=== PATIENT | male | born 1985 | race Caucasian/White ===

== ENCOUNTER 2016-11-05 17:13 | Inpatient (IN) | payer OTHER ==
[~2016-11-05] VITALS: Ht 172.7 cm; Wt 73.8 kg
[2016-11-05 17:20] VITALS: BP 129/72; PULSE 67; RESP 16; TEMP 97.8; O2SAT 96
[2016-11-05] MEDS ORDERED: SODIUM CHLOR 0.9% 1000 ML INJ 1,000 ML IV SCH (18:56)
[2016-11-05] MEDS ORDERED: SODIUM CHLORIDE 0.9% FLUSH 5 ML FLUSH IVF PRN (19:00)
[2016-11-05] MEDS ORDERED: KETOROLAC TROMETHAMINE 30 MG/ML (IVP) VIAL IV PUSH ONE (19:00)
--- NOTE | 2016-11-05 19:12 | PD ---
HPI Chief Complaint: Flank/Kidney Pain Time Seen by Provider: 18:52 Travel History International Travel<30 days: No Contact w/Intl Traveler<30days: No Traveled to known affect area: No History of Present Illness HPI 31-year-old male here for evaluation of left flank pain. The patient reports intermittent left flank pain for last 2 weeks, worse since yesterday evening. He believes he may passed a couple of kidney stones this morning and he has history of kidney stones. Pain described as an ache, intermittent, no modifying factors, radiates to his left upper and lower abdomen. He denies history of abdominal surgeries. No fevers or chills. No nausea or vomiting. No diarrhea. No dysuria or hematuria. PFSH Social History Tobacco Use: No Allergies-Medications (Allergen,Severity, Reaction): Coded Allergies: No Known Allergies (Unverified , 11/05/16) Reported Meds & Prescriptions Reported Meds & Active Scripts Active No Active Prescriptions or Reported Medications Review of Systems Except as stated in HPI: all other systems reviewed are Neg Physical Exam Narrative GENERAL: Pleasant, well-developed, well-nourished, comfortable, no acute distress. SKIN: Warm and dry. No rash. HEAD: Atraumatic. Normocephalic. EYES: Pupils equal and round. No scleral icterus. No injection or drainage. ENT: Mucous membranes pink and moist. NECK: Trachea midline. No JVD. CARDIOVASCULAR: Regular rate and rhythm. RESPIRATORY: No accessory muscle use. Clear to auscultation. Breath sounds equal bilaterally. GASTROINTESTINAL: Abdomen soft, non-tender, nondistended. Hepatic and splenic margins not palpable. MUSCULOSKELETAL: No obvious deformities. No clubbing. No cyanosis. No edema. Mild left CVA tenderness. No right CVA tenderness. No midline vertebral step- off or tenderness. NEUROLOGICAL: Awake and alert. No obvious cranial nerve deficits. Motor grossly within normal limits. Normal speech. PSYCHIATRIC: Appropriate mood and affect; insight and judgment normal. Data Data Last Documented VS Vital Signs Date Time Temp Pulse Resp B/P Pulse Ox O2 Delivery O2 Flow Rate FiO2 11/05/16 20:00 63 18 141/88 100 Room Air 11/05/16 17:20 97.8 Orders Complete Blood Count With Diff (11/05/16 18:56) Comprehensive Metabolic Panel (11/05/16 18:56) Lipase (11/05/16 18:56) Prothrombin Time / Inr (Pt) (11/05/16 18:56) Act Partial Throm Time (Ptt) (11/05/16 18:56) Urinalysis - C+S If Indicated (11/05/16 18:56) Ct Abd/Pel W/O Iv Contrast (11/05/16 18:56) Iv Access Insert/Monitor (11/05/16 18:56) Ecg Monitoring (11/05/16 18:56) Oximetry (11/05/16 18:56) Sodium Chlor 0.9% 1000 Ml Inj (Ns 1000 M (11/05/16 18:56) Sodium Chloride 0.9% Flush (Ns Flush) (11/05/16 19:00) Ketorolac Inj (Toradol Inj) (11/05/16 19:00) Admit Order (Ed Use Only) (11/05/16 20:07) Labs Laboratory Tests Test 11/05/16 19:25 White Blood Count 6.9 TH/MM3 Red Blood Count 5.20 MIL/MM3 Hemoglobin 16.1 GM/DL Hematocrit 47.6 % Mean Corpuscular Volume 91.6 FL Mean Corpuscular Hemoglobin 31.0 PG Mean Corpuscular Hemoglobin 33.8 % Concent Red Cell Distribution Width 12.4 % Platelet Count 203 TH/MM3 Mean Platelet Volume 9.5 FL Neutrophils (%) (Auto) 65.7 % Lymphocytes (%) (Auto) 25.3 % Monocytes (%) (Auto) 7.2 % Eosinophils (%) (Auto) 1.3 % Basophils (%) (Auto) 0.5 % Neutrophils # (Auto) 4.6 TH/MM3 Lymphocytes # (Auto) 1.8 TH/MM3 Monocytes # (Auto) 0.5 TH/MM3 Eosinophils # (Auto) 0.1 TH/MM3 Basophils # (Auto) 0.0 TH/MM3 CBC Comment DIFF FINAL Differential Comment Prothrombin Time 10.3 SEC Prothromb Time International 0.9 RATIO Ratio Activated Partial 26.5 SEC Thromboplast Time Urine Collection Type CLEAN CATCH Urine Color YELLOW Urine Turbidity CLEAR Urine pH 5.5 Urine Specific [place] 1.022 Urine Protein NEG mg/dL Urine Glucose (UA) NEG mg/dL Urine Ketones NEG mg/dL Urine Occult Blood NEG Urine Nitrite NEG Urine Bilirubin NEG Urine Leukocyte Esterase NEG Urine Squamous Epithelial 0-5 /hpf Cells Urine Mucus OCC /lpf Microscopic Urinalysis Comment CULT NOT INDICATED Sodium Level 144 MEQ/L Potassium Level 3.9 MEQ/L Chloride Level 108 MEQ/L Carbon Dioxide Level 27.2 MEQ/L Anion Gap 9 MEQ/L Blood Urea Nitrogen 18 MG/DL Creatinine 0.70 MG/DL Estimat Glomerular Filtration 130 ML/MIN Rate Random Glucose 89 MG/DL Calcium Level 8.9 MG/DL Total Bilirubin 0.4 MG/DL Aspartate Amino Transf 16 U/L (AST/SGOT) Alanine Aminotransferase 37 U/L (ALT/SGPT) Alkaline Phosphatase 95 U/L Total Protein 7.4 GM/DL Albumin 3.9 GM/DL Lipase 1355 U/L [facility] Medical Decision Making Medical Screen Exam Complete: Yes Emergency Medical Condition: Yes Differential Diagnosis Nephrolithiasis, ureterolithiasis, pyelonephritis, UTI, gastritis, pancreatitis , hepatobiliary disease. Narrative Course Vital signs are within normal limits. CBC is unremarkable. CMP is unremarkable. Lipase is 1355. UA is unremarkable. CT abdomen pelvis shows a tiny stone in the right kidney, otherwise unremarkable. The patient was made aware of all findings. He is not a daily drinker nor does he consume significant amount of alcohol. He does admit to drinking some alcohol throughout the week last week drinking only a couple of drinks per day. Last alcoholic beverage was 2 nights ago. Patient's abdominal exam is benign. There are no peritoneal signs. Because his lipase is 3 times the upper limit of normal, he will be admitted for overnight observation for IV hydration, nothing by mouth. Case discussed with hospitalist Dr Soto who will admit the patient to her service. Diagnosis Primary Impression: Pancreatitis Qualified Code: K85.90 - Acute pancreatitis, unspecified complication status, unspecified pancreatitis type Admitting Information Admitting Physician Requests: Admit Scripts No Active Prescriptions or Reported Meds Nato Martinez MD Nov 05, 2016 19:12
[2016-11-05 19:19] VITALS: RESP 18; O2SAT 98
[2016-11-05 19:39] LABS: AUTOMATED NEUTROPHIL # 4.6 TH/MM3 (1.8-7.7); BASOPHIL % 0.5 % (0.0-2.0); EOSINOPHIL # 0.1 TH/MM3 (0-0.4); EOSINOPHIL % 1.3 % (0.0-4.0); HEMATOCRIT 47.6 % (39.0-51.0); HEMO FLAGS DIFF FINAL; LYMPH % 25.3 % (9.0-44.0); LYMPHOCYTE # 1.8 TH/MM3 (1.0-4.8); MEAN CELL VOLUME 91.6 FL (80.0-100.0); MEAN CORPUSCULAR HGB CONC 33.8 % (32.0-36.0); MONO % 7.2 % (0.0-8.0); NEUT % 65.7 % (16.0-70.0); PLATELET COUNT 203 TH/MM3 (150-450); RED CELL DISTRIBUTION WIDTH 12.4 % (11.6-17.2); WHITE BLOOD COUNT 6.9 TH/MM3 (4.0-11.0)
[2016-11-05 19:40] LABS: BLOOD, URINE NEG (NEG); GLUCOSE,URINE NEG (NEG); KETONE, URINE NEG (NEG); NITRITE,URINE NEG (NEG); PH, URINE 5.5 (5.0-8.5)
[2016-11-05 19:42] LABS: CHLORIDE 108 MEQ/L (98-107); POTASSIUM 3.9 MEQ/L (3.5-5.1); SODIUM (NA) 144 MEQ/L (136-145)
[2016-11-05 19:45] LABS: METHOD OF COLLECTION CLEAN CATCH; URINE COLOR YELLOW (YELLW/STRAW)
[2016-11-05 19:46] LABS: ANION GAP 9 MEQ/L (5-15); BICARBONATE 27.2 MEQ/L (21.0-32.0); BLOOD UREA NITROGEN 18 MG/DL (7-18)
--- NOTE | 2016-11-05 19:46 | RADHPO ---
EXAM DATE/TIME: 11/05/2016 19:08 [place] COMPARISON: No previous studies available for comparison. INDICATIONS : Left flank pain. ORAL CONTRAST: No oral contrast ingested. RADIATION DOSE: 10.23 CTDIvol (mGy) MEDICAL HISTORY : None SURGICAL HISTORY : None. ENCOUNTER: Initial ACUITY: 2 weeks PAIN SCALE: 6/10 LOCATION: Left flank TECHNIQUE: Volumetric scanning of the abdomen and pelvis was performed. Using automated exposure control and ad justment of the mA and/or kV according to patient size, radiation dose was kept as low as reasonably achievable to obtain optimal diagnostic quality images. FINDINGS: LOWER LUNGS: The visualized lower lungs are clear. LIVER: Homogeneous density without lesion. There is no dilation of the biliary tree. No calcified gallston es. SPLEEN: Normal size without lesion. PANCREAS: Within normal limits. KIDNEYS: There is a 2 mm nonobstructing stone of the right lower pole. No renal stone seen on the left. No ure teral calculus, hydronephrosis or hydroureter seen on side. ADRENAL GLANDS: Within normal limits. VASCULAR: There is no aortic aneurysm. BOWEL/MESENTERY: The stomach, small bowel, and colon demonstrate no acute abnormality. There is no free intraperitone al air or fluid. Appendix is well-visualized, normal. ABDOMINAL WALL: Within normal limits. RETROPERITONEUM: There is no lymphadenopathy. BLADDER: No wall thickening or mass. REPRODUCTIVE: Within normal limits. INGUINAL: There is no lymphadenopathy or hernia. MUSCULOSKELETAL: Within normal limits for patient age. CONCLUSION: Tiny nonobstructing stone of the right kidney. Otherwise normal noncontrast CT of the abdomen and pel vis. Black Silva MD on November 05, 2016 at 19:42 Board Certified Radiologist. This report was verified electronically.
[2016-11-05 19:47] LABS: APTT (PATIENT) 26.5 SEC (24.3-30.1); INTERNATIONAL NORMALIZED RATIO 0.9 RATIO; MUCUS URINE OCC /lpf (OCC); PROTHROMBIN TIME - PATIENT 10.3 SEC (9.8-11.6)
[2016-11-05 19:48] LABS: ALT (GPT) 37 U/L (12-78); AST (GOT) 16 U/L (15-37); SQUAMOUS EPITHELIAL CELL URINE 0-5 /hpf (0-5)
[2016-11-05 19:49] LABS: COMMENT (UR) CULT NOT INDICATED; CULTURE IF INDICATED CULT NOT INDICATED; GLOMERULAR FILTRATION RATE 130 ML/MIN (>89)
[2016-11-05 19:50] LABS: TOTAL BILIRUBIN ADULT 0.4 MG/DL (0.2-1.0)
[2016-11-05 19:51] LABS: ALKALINE PHOSPHATASE 95 U/L (45-117)
[2016-11-05 20:00] VITALS: BP 141/88; PULSE 63; RESP 18; O2SAT 100
[2016-11-05] MEDS ORDERED: MORPHINE SULFATE 4 MG/ML INJ IV PRN (20:15)
[2016-11-05] MEDS ORDERED: ACETAMINOPHEN/HYDROcodone 325 MG/5 MG TAB PO PRN (20:15)
[2016-11-05] MEDS ORDERED: BISACODYL 10 MG SUPP PR PRN (20:15)
[2016-11-05] MEDS ORDERED: ONDANSETRON HCL 4 MG/2 ML VIAL IVP PRN (20:15)
[2016-11-05] MEDS ORDERED: SODIUM CHLORIDE 0.9% FLUSH 5 ML FLUSH FLUSH PRN (20:15)
[2016-11-05] MEDS ORDERED: ACETAMINOPHEN 325 MG TAB PO PRN (20:15)
[2016-11-05] MEDS: PANTOPRAZOLE SODIUM 40 MG VIAL IV PUSH SCH (20:28)
[2016-11-05] MEDS: SODIUM CHLOR 0.9% 1000 ML INJ 1,000 ML IV SCH (20:28)
[2016-11-05] MEDS: SODIUM CHLORIDE 0.9% FLUSH 5 ML FLUSH FLUSH SCH (21:00)
[2016-11-05 21:24] VITALS: BP 117/65; PULSE 65; RESP 18; O2SAT 100
[2016-11-05 22:22] VITALS: BP 106/63; PULSE 60; RESP 18; O2SAT 99
[2016-11-05 23:26] VITALS: BP 116/76; PULSE 55; RESP 18; O2SAT 99
[2016-11-06] VITALS (7 sets, daily range): BP systolic 99–127; BP diastolic 61–80; PULSE 52–70; RESP 16–18; TEMP 97.6–97.8; O2SAT 96–99
[2016-11-06] MEDS: SODIUM CHLOR 0.9% 1000 ML INJ 1,000 ML IV SCH (06:30)
[2016-11-06 06:49] LABS: AUTOMATED NEUTROPHIL # 3.1 TH/MM3 (1.8-7.7); BASOPHIL # 0.1 TH/MM3 (0-0.2); BASOPHIL % 0.8 % (0.0-2.0); EOSINOPHIL # 0.1 TH/MM3 (0-0.4); EOSINOPHIL % 1.8 % (0.0-4.0); HEMATOCRIT 41.4 % (39.0-51.0); HEMO FLAGS DIFF FINAL; LYMPH % 40.4 % (9.0-44.0); LYMPHOCYTE # 2.5 TH/MM3 (1.0-4.8); MEAN CELL VOLUME 92.3 FL (80.0-100.0); MEAN CORPUSCULAR HEMOGLOBIN 30.9 PG (27.0-34.0); MEAN CORPUSCULAR HGB CONC 33.4 % (32.0-36.0); MONO % 7.9 % (0.0-8.0); NEUT % 49.1 % (16.0-70.0); PLATELET COUNT 148 TH/MM3 (150-450); RED BLOOD COUNT 4.48 MIL/MM3 (4.50-5.90); RED CELL DISTRIBUTION WIDTH 12.1 % (11.6-17.2); WHITE BLOOD COUNT 6.3 TH/MM3 (4.0-11.0)
[2016-11-06 06:56] LABS: CHLORIDE 110 MEQ/L (98-107); POTASSIUM 3.8 MEQ/L (3.5-5.1); SODIUM (NA) 144 MEQ/L (136-145)
[2016-11-06 07:08] LABS: ALKALINE PHOSPHATASE 69 U/L (45-117); ALT (GPT) 27 U/L (12-78); ANION GAP 7 MEQ/L (5-15); AST (GOT) 12 U/L (15-37); BICARBONATE 27.3 MEQ/L (21.0-32.0); BLOOD UREA NITROGEN 15 MG/DL (7-18); GLOMERULAR FILTRATION RATE 134 ML/MIN (>89); TOTAL BILIRUBIN ADULT 0.6 MG/DL (0.2-1.0)
[2016-11-06] MEDS: PANTOPRAZOLE SODIUM 40 MG VIAL IV PUSH SCH (10:28)
[2016-11-06] MEDS: SODIUM CHLORIDE 0.9% FLUSH 5 ML FLUSH FLUSH SCH (10:32)
--- NOTE | 2016-11-06 15:28 | HHI.HP ---
[facility] Service [facility] Primary Care Physician No Primary Care Physician Admission Diagnosis acute pancreatitis Diagnoses: (1) Pancreatitis (2) Acute costochondritis Travel History International Travel<30 Days: No Contact w/Intl Traveler <30 Da: No Traveled to Known Affected Are: No History of Present Illness This is a pleasant 31-year-old male with past medical history of kidney stones and costochondritis who presents with a two-week history of left- sided flank and chest wall pain which is intermittent. The patient describes it as a "balloon expanding inside of my chest." The pain yesterday became quite severe and sharp and so he presented to the ER. The patient states that he does have a history of kidney stones in the past but she treated in the outpatient setting by straining his urine. He also states that he had a history of costochondritis several years ago and he wondered if this pain might be the costochondritis returning. The patient does not smoke cigarettes or take any medications. He has no other past medical history. He does drink alcohol once every 6 months and has had a few drinks over the holidays but nothing in excess. The patient denied any epigastric pain, nausea or vomiting. He denied any hematuria. Denied any diarrhea. No fevers or chills. No dysuria. In the emergency department an abdominal CT scan was ordered which showed a tiny nonobstructing stone of the right kidney but was otherwise a normal study. His lipase was elevated at 1355 and has come down to 423 today. The patient today states he is feeling much better. He is eating well. His pain is much subsided. He would like to go home. Review of Systems Constitutional: DENIES: Fever, Chills Endocrine: DENIES: Polydipsia Ears, nose, mouth, throat: DENIES: Nasal discharge, Throat pain Respiratory: DENIES: Cough, Shortness of breath Cardiovascular: DENIES: Chest pain, Palpitations, Dyspnea on Exertion, Lower Extremity Edema Gastrointestinal: DENIES: Abdominal pain, Diarrhea, Nausea, Vomiting Genitourinary: DENIES: Hematuria, Dysuria Musculoskeletal: DENIES: Back pain, Neck pain Integumentary: DENIES: Pruritus, Rash Neurologic: DENIES: Abnormal gait, Headache Psychiatric: DENIES: Anxiety, Confusion Past Family Social History Past Medical History As per history of present illness Past Surgical History None Reported Medications None Allergies: Coded Allergies: No Known Allergies (Unverified , 11/05/16) Family History No family history of early deaths in males or coronary atherosclerosis at a young age. Social History As per history of present illness Physical Exam Vital Signs Vital Signs Date Time Temp Pulse Resp B/P Pulse Ox O2 Delivery O2 Flow Rate FiO2 11/06/16 12:00 97.6 60 18 127/77 99 11/06/16 08:00 97.8 52 16 126/80 99 11/06/16 07:35 97.8 62 16 121/75 98 Room Air 11/06/16 07:35 16 98 Room Air 11/06/16 06:21 65 18 106/67 97 Room Air 11/06/16 06:21 65 18 11/06/16 03:42 53 18 11/06/16 03:42 53 18 102/67 96 Room Air 11/06/16 02:04 18 11/06/16 01:40 70 18 99/61 98 Room Air 11/06/16 01:40 70 18 11/06/16 00:33 61 18 106/68 99 Room Air 11/05/16 23:26 55 18 116/76 99 Room Air 11/05/16 23:26 55 18 11/05/16 22:22 60 18 106/63 99 Room Air 11/05/16 21:24 65 18 11/05/16 21:24 65 18 117/65 100 Room Air 11/05/16 20:19 18 11/05/16 20:00 63 18 141/88 100 Room Air 11/05/16 19:19 18 98 Room Air 11/05/16 17:20 97.8 67 16 129/72 96 Physical Exam GENERAL: Well-nourished, well-developed young adult male patient. SKIN: Warm and dry. HEAD: Normocephalic. EYES: No scleral icterus. No injection or drainage. NECK: Supple, trachea midline. No JVD or lymphadenopathy. CARDIOVASCULAR: Regular rate and rhythm without murmurs, gallops, or rubs. The patient has some tenderness to palpation at the left costochondral junction. RESPIRATORY: Breath sounds equal bilaterally. No accessory muscle use. GASTROINTESTINAL: Abdomen soft, non-tender, nondistended. EXTREMITIES: No cyanosis, or edema. NEUROLOGICAL: Awake, alert, and oriented x 3. Non-focal. Laboratory Laboratory Tests Test 11/05/16 11/06/16 19:25 06:25 White Blood Count 6.9 6.3 Red Blood Count 5.20 4.48 Hemoglobin 16.1 13.8 Hematocrit 47.6 41.4 Mean Corpuscular Volume 91.6 92.3 Mean Corpuscular Hemoglobin 31.0 30.9 Mean Corpuscular Hemoglobin 33.8 33.4 Concent Red Cell Distribution Width 12.4 12.1 Platelet Count 203 148 Mean Platelet Volume 9.5 9.1 Neutrophils (%) (Auto) 65.7 49.1 Lymphocytes (%) (Auto) 25.3 40.4 Monocytes (%) (Auto) 7.2 7.9 Eosinophils (%) (Auto) 1.3 1.8 Basophils (%) (Auto) 0.5 0.8 Neutrophils # (Auto) 4.6 3.1 Lymphocytes # (Auto) 1.8 2.5 Monocytes # (Auto) 0.5 0.5 Eosinophils # (Auto) 0.1 0.1 Basophils # (Auto) 0.0 0.1 CBC Comment DIFF FINAL DIFF FINAL Differential Comment Prothrombin Time 10.3 Prothromb Time International 0.9 Ratio Activated Partial 26.5 Thromboplast Time Urine Collection Type CLEAN CATCH Urine Color YELLOW Urine Turbidity CLEAR Urine pH 5.5 Urine Specific [place] 1.022 Urine Protein NEG Urine Glucose (UA) NEG Urine Ketones NEG Urine Occult Blood NEG Urine Nitrite NEG Urine Bilirubin NEG Urine Leukocyte Esterase NEG Urine Squamous Epithelial 0-5 Cells Urine Mucus OCC Microscopic Urinalysis Comment CULT NOT INDICATED Sodium Level 144 144 Potassium Level 3.9 3.8 Chloride Level 108 110 Carbon Dioxide Level 27.2 27.3 Anion Gap 9 7 Blood Urea Nitrogen 18 15 Creatinine 0.70 0.68 Estimat Glomerular Filtration 130 134 Rate Random Glucose 89 80 Calcium Level 8.9 8.1 Total Bilirubin 0.4 0.6 Aspartate Amino Transf 16 12 (AST/SGOT) Alanine Aminotransferase 37 27 (ALT/SGPT) Alkaline Phosphatase 95 69 Total Protein 7.4 5.8 Albumin 3.9 3.1 Lipase 1355 423 Result Diagram: 11/06/1662411/06/1625 Imaging Last Impressions Abdomen/Pelvis CT 11/05/16 1856 Signed Impressions: Service Date/Time: Saturday, November 05, 2016 19:08 - CONCLUSION: Tiny nonobstructing stone of the right kidney. Otherwise normal noncontrast CT of the abdomen and pelvis. Black Silva MD Assessment and Plan Assessment and Plan -Possible mild acute pancreatitis with lipase elevation of 1355. Symptoms not typical of pancreatitis. No inflammation seen on abdominal CT scan. No nausea or vomiting or abdominal pain. He is tolerating diet. Patient was advised to avoid alcohol and to eat a low-fat diet. -Left-sided chest wall pain which is sharp in nature. Likely costochondritis. He has no cardiac risk factors. Patient advised to take NSAIDs. Will prescribe him a short term prescription for Lortab. Discharge home today in stable condition. Prescriptions as per med rec. Problem Qualifiers (1) Pancreatitis: Qualified Code: K85.90 - Acute pancreatitis, unspecified complication status, unspecified pancreatitis type Allyson Duncan MD Nov 06, 2016 15:28
[2016-11-06] MEDS ORDERED: HYDR-3516 PO (15:29)
[2016-11-06] MEDS ORDERED: IBUP800T23 PO (15:29)
== END 2016-11-06 16:04 | disposition home or self-care (01) | DRG 440 ==
LOC: PHED 17:13 → PHEDA 20:09 → PHEDH 23:20 → PH3A 11-06 08:27
PROVIDERS: ADMIT Family Medicine; ATTEND Family Medicine
DX: K85.90 Acute pancreatitis without necrosis or infection, unspecified (principal); N20.0 Calculus of kidney; M94.0 Chondrocostal junction syndrome [Tietze]; Z87.442 Personal history of urinary calculi
CPT/HCPCS: 74176; 80053; 81001; 83690; 85025; 85610; 85730; 96361; 96374; C9113; J1885; J2270; J2405; J7030